=== PATIENT | female | born 2000 | race Caucasian/White ===

== ENCOUNTER 2020-04-14 09:42 | Emergency (ER) | payer BC, OTHER ==
--- NOTE | 2020-04-14 09:46 | PDOC ---
History of Present Illness - General Chief Complaint: Pain Stated Complaint: CHEST, ABD PAIN Time Seen by Provider: 04/14/20 09:44 - History of Present Illness Initial Comments: The pt is a 19F w/ no reported PMH who presents for evaluation of abdominal and chest pain for 1 day. The pt reports that this AM she woke with Pelvic/S uprapubic cramping that was constant, radiated up to her upper abdomen and chest, lasted for approximately 15 minutes and then started to improve. She currently denies chest pain. She has never had symptoms like this before. She reports current lower abdominal tenderness but nowhere near the severity earlier. She denies fevers/chills, BERNABE, vision changes, trouble breathing, N/V/C/D, dysuria, hematuria, vaginal bleeding/discharge. LMP was 3 weeks ago and pt states her menses are regular. Pt reports being sexually active in the past, last encounter was 06/2019 but denies any symptoms. PMH: Ache PSH: Denies Meds: Spironolactone Allergies: Denies SH: Denies x3 04/14/20 10:38 Past History - Medical History Allergies/Adverse Reactions: Allergies Allergy/AdvReac Type Severity Reaction Status Date / Time No Known Allergies Allergy Verified 04/14/20 09:42 Home Medications: Ambulatory Orders Spironolactone mg PO DAILY 04/14/20 - Immunization History Immunization Up to Date: Yes - Psycho-Social/Smoking History Smoking Status: No Smoking History: Never smoked Have you smoked in the past 12 months: No Number of Cigarettes Smoked Daily: 0 Review of Systems - Review of Systems Able to Perform ROS?: Yes Comments:: GENERAL/CONSTITUTIONAL: No fever or chills. No weakness HEAD, EYES, EARS, NOSE AND THROAT: No change in vision. No change in hearing. No sore throat CARDIOVASCULAR: No shortness of breath RESPIRATORY: Denies cough, hemoptysis GASTROINTESTINAL: No nausea, vomiting, diarrhea or constipation GENITOURINARY: No dysuria, frequency, or change in urination MUSCULOSKELETAL: No joint or muscle swelling or pain. No neck or back pain SKIN: No rash NEUROLOGIC: No headache, vertigo, loss of consciousness, or change in strength/sensation ENDOCRINE: No increased thirst. No abnormal weight change HEMATOLOGIC/LYMPHATIC: No anemia, easy bleeding, or history of blood clots ALLERGIC/IMMUNOLOGIC: No hives or skin allergy 04/14/20 09:46 Is the patient limited Luxembourger proficient: No *Physical Exam - Vital Signs Initial Vital Signs Temp Pulse Resp BP Pulse Ox 99 F 73 18 125/75 100 04/14/20 09:42 04/14/20 09:42 04/14/20 09:42 04/14/20 09:42 04/14/20 09:42 04/14/20 10:18 - Physical Exam GENERAL: Awake, alert, and oriented to person/place/time, in no acute distress HEAD: No signs of trauma, normocephalic, atraumatic EYES: PERRLA, EOMI, sclera anicteric, conjunctiva clear ENT: Hearing grossly normal, nares patent, oropharynx clear without exudates. Moist mucosa LUNGS: No distress, speaks in full sentences, clear to auscultation bilaterally HEART: Regular rate and rhythm, normal S1 and S2, no murmurs appreciated, peripheral pulses normal and equal bilaterally ABDOMEN: Soft, LLQ/suprapubic TTP w/o rebound or guarding, normoactive bowel sounds EXTREMITIES: Normal inspection, Normal range of motion, no edema. No clubbing or cyanosis NEUROLOGICAL: Cranial nerves II through XII grossly intact. Normal speech, normal gait, no focal sensorimotor deficits SKIN: Warm, Dry External genitalia unremarkable. Speculum exam with moderate amount of whitish-green discharge Vaginal wall mucosa is unremarkable Cervix visualized and is closed in appearance without any protruding material Bimanual exam without cervical motion tenderness, general pressure sensation reported but no focal adnexal tenderness or any masses appreciated Swabs for testing for gonorrhea, chlamydia were obtained 04/14/20 09:46 ED Treatment Course - LABORATORY CBC & Chemistry Diagram: 04/14/20 10:15 04/14/20 10:15 - RADIOLOGY Radiograph Interpretation: US/PELVIS(OTHER) US The uterus is normal in size measuring 9.4 x 4.6 x 2.7 cm. No uterine masses are seen. A normal appearing endometrium of 10 mm thickness is identified. The ovaries are normal in size and texture with arterial and venous flow documented to both ovaries. There is an involuting cyst of the right ovary with a trace of free fluid within the cul-de-sac. There is no evidence of adnexal masses. IMPRESSION: Involuting cyst of the right ovary with trace free fluid, otherwise normal pelvic sonogram with no evidence of ovarian torsion or acute pathology. 04/14/20 12:07 Medical Decision Making - Medical Decision Making The pt is a 19F w/ no reported PMH who presents for evaluation of abdominal and chest pain for 1 day that is improving. Pt currently with LLQ and suprapubic TTP w/o rebound or guarding. Pelvic exam with moderate discharge w/o CMT Pt does not want anything for pain at this time Ddx: Uterine cramping, , ovarian cyst, STI, UTI/pyelo, not likely appendicitis, not likely ACS, not likely enteritis/gastroenteritis ED Course CMP, CBC, UA, Upreg, GC amplification ECG TVUS ECG w/ NSR, sinus arrhythmia noted; HR 66; QTc 419; no axis deviation; no acute ischemic changes No leukocytosis No anemia UA contaminated but w/o evidence of UTI Upreg neg 04/14/20 10:45 Lytes unremarkable No ULISES LFTs unremarkable 04/14/20 10:49 TVUS w/ involuting cyst of the right ovary with trace free fluid, otherwise normal pelvic sonogram with no evidence of ovarian torsion or acute pathology Pt's pain controlled at this time Plan for D/C w/ PCP/OBGYN f/u Discharge instructions and return precautions given Patient in agreement and verbalized understanding Dispo: Home 04/14/20 12:08 Discharge - Discharge Information Problems reviewed: Yes Clinical Impression/Diagnosis: Suprapubic pain Chest pain Qualifiers: Chest pain type: unspecified Qualified Code(s): R07.9 - Chest pain, unspecified Ovarian cyst Qualifiers: Laterality: right Qualified Code(s): N83.201 - Unspecified ovarian cyst, right side Condition: Stable Disposition: HOME - Admission No - Follow up/Referral Referrals: Cristofer Bekcwith MD [Staff Physician] - Jewels Nichols MD [Staff Physician] - [facility] – [place] [facility] at [place] [Provider Group] - Patient Discharge Instructions Patient Printed Discharge Instructions: DI for Ovarian Cyst Additional Instructions: You were seen in the Emergency Department for evaluation of abdominal and chest pain. Your labs were overall unremarkable and your ECG was normal. Your ultrasound was notable for a right, resolving ovarian cyst. It is likely that this is the source of your pain. Review the handout provided at discharge. A referral for OBGYN was provided, please follow up with them or your own within a week. For pain you may take Tylenol 650mg every 6 hours and Ibuprofen 600mg every 6-8 hours, alternating them each time. Return to the Emergency Department if you develop fevers, chest pain, trouble breathing, vaginal bleeding/discharge, pain with urination, blood in your urine, blood in your stool, worsening pain, change in sensation, worsening symptoms, or any new/concerning symptoms. - Post Discharge Activity Work/Back to School Note: Back to Work
[2020-04-14 09:49] VITALS: BP 125/75; PULSE 73; TEMP 99; BMI 30.4
[2020-04-14 10:30] LABS: BASO % 0.5 % (0-2.0); EOS % 0.9 % (0-4.5); HEMATOCRIT 35.4 % (32.4-45.2); HEMOGLOBIN 12.2 GM/dl (10.7-15.3); LYMPH % 29.4 % (8-40); MCH 30.3 pg (25.7-33.7); MCHC 34.5 g/dl (32.0-36.0); MEAN PLT VOLUME 8.2 fl (7.5-11.1); MONO % 7.3 % (3.8-10.2); NEUT % 61.9 % (42.8-82.8); PLATELET COUNT 218 K/MM3 (134-434); RBC 4.02 M/mm3 (3.60-5.2); RDW 12.2 % (11.6-15.6); WHITE BLOOD COUNT 6.7 K/mm3 (4.0-10.8)
[2020-04-14 10:30] LABS: EPITHELIAL CELLS MANY /hpf
[2020-04-14 10:37] LABS: ALBUMIN 3.9 g/dl (3.4-5.0); BILIRUBIN,TOTAL 0.4 mg/dl (0.2-1); CALCIUM 8.9 mg/dl (8.5-10); CREATININE 0.6 mg/dl (0.55-1.3); TOT PROT 6.8 g/dl (6.4-8.2)
--- NOTE | 2020-04-14 13:38 | PDOC ---
Attending Attestation - Resident Resident Name: Santi Noe - ED Attending Attestation I have performed the following: I have examined & evaluated the patient, The case was reviewed & discussed with the resident, I agree w/resident's findings & plan, Exceptions are as noted - HPI HPI: 04/14/20 11:40 19-year-old female with no significant past medical history presents to the emergency department with abdominal pain since this morning. Patient reports pain was localized around the suprapubic area and was dull, rated at a 5/10. She reports the pain radiated up towards her chest for less than a minute. Denies chest pain. At this time, she reports she has significantly less pain but continues to have a dull 2 out of 10 discomfort in the suprapubic area. Denies history of similar symptoms. Denies any nausea, vomiting, diarrhea. Reports her last period was 3 weeks ago. Denies any vaginal discharge. Reports last sexual encounter was year and half ago, denies any recent sexual partners. Denies any hematuria, dysuria, frequency or urgency. Denies any flank pain. Was in her usual state of health yesterday. Denies any headache, focal weakness or numbness, chest pain, shortness of breath or lower extremity edema. Of note patient reports that she take spironolactone for acne. Denies any surgical history. - Physicial Exam PE: 04/14/20 13:49 GENERAL: Awake, alert, and fully oriented, in no acute distress EYES: PERRLA, EOMI, sclera anicteric, conjunctiva clear ENT: Oropharynx clear without exudates. Moist mucosa NECK: Normal ROM, supple, no lymphadenopathy, JVD, or masses LUNGS: Breath sounds equal, clear to auscultation bilaterally. No wheezes, and no crackles HEART: Regular rate and rhythm, normal S1 and S2, no murmurs, rubs or gallops ABDOMEN: Soft, minimal suprapubic ttp. Otherwise nontender, normoactive bowel sounds. No guarding, no rebound or distention. No masses EXTREMITIES: Normal range of motion, no edema. No clubbing or cyanosis. No cords, erythema, or tenderness NEUROLOGICAL: Normal speech, cranial nerves intact, equal strength and sensation b/l SKIN: Warm, Dry, normal turgor, no rashes or lesions noted. - Medical Decision Making 04/14/20 13:50 19yo F presents to the ED with dull suprapubic pain, now improved w/o intervention Vitals wnl Exam with suprapubic ttp DDx includes vs STI vs UTI vs ovarian cyst rupture vs mittelschmirtz vs appy vs diverticulitis Pelvic done by Dr. Noe and supervised by me revealing of white thick discharge in vault, no significant focal ttp or cmt Pt low risk for STI based on history so will not treat empirically for PID but GC/CT swab is pending TVUS reveals involuting R ovarian cyst and trace free fluid. Sxs likely 2/2 ruptured ovarian cyst with rupture causing temporary pain radiating towards chest EKG non ischemic UA neg, labs unremarkable with no leukocytosis Pain well controlled in the ED. No RLQ or LLQ ttp to suggest appy or diverticulitis Pain declined pain medication throughout ED stay She is well appearing. Return precautions discussed She is clinically stable for DC to f/u [facility] I discussed the physical exam findings, ancillary test results and final diagnoses with the patient. I answered all of the patient's questions. The patient was satisfied with the care received and felt comfortable with the discharge plan and treatment plan. The patient will call their primary care physician within 24 hours to arrange follow-up and will return to the Emergency Department with any new, persistent or worsening symptoms. Heart Score/ECG Review #1 04/14/20 13:53 Twelve-lead EKG was performed and reviewed by me. Normal sinus rhythm, rate 66. Sinus arrhythmia likely secondary to respiratory variation. No ST elevations or T wave inversions. Discharge - Discharge Information Problems reviewed: Yes Clinical Impression/Diagnosis: Suprapubic pain Chest pain Qualifiers: Chest pain type: unspecified Qualified Code(s): R07.9 - Chest pain, unspecified Ovarian cyst Qualifiers: Laterality: right Qualified Code(s): N83.201 - Unspecified ovarian cyst, right side Condition: Stable Disposition: HOME - Follow up/Referral Referrals: [facility] – [place] [facility] at [place] [Provider Group] Jewels Nichols MD [Staff Physician] - Cristofer Beckwith MD [Staff Physician] - - Patient Discharge Instructions Patient Printed Discharge Instructions: DI for Ovarian Cyst Additional Instructions: You were seen in the Emergency Department for evaluation of abdominal and chest pain. Your labs were overall unremarkable and your ECG was normal. Your ultrasound was notable for a right, resolving ovarian cyst. It is likely that this is the source of your pain. Review the handout provided at discharge. A referral for OBGYN was provided, please follow up with them or your own within a week. For pain you may take Tylenol 650mg every 6 hours and Ibuprofen 600mg every 6-8 hours, alternating them each time. Return to the Emergency Department if you develop fevers, chest pain, trouble breathing, vaginal bleeding/discharge, pain with urination, blood in your urine, blood in your stool, worsening pain, change in sensation, worsening symptoms, or any new/concerning symptoms. - Post Discharge Activity Work/Back to School Note: Back to Work
--- NOTE | 2020-04-15 12:57 | EKG ---
Test Reason : Blood Pressure : / mmHG Vent. Rate : 066 BPM Atrial Rate : 066 BPM P-R Int : 144 ms QRS Dur : 090 ms QT Int : 400 ms P-R-T Axes : 052 067 048 degrees QTc Int : 419 ms NORMAL SINUS RHYTHM WITH SINUS ARRHYTHMIA NORMAL ECG NO PREVIOUS ECGS AVAILABLE Confirmed by MD ELTON, JOANNE ([id number]) on 04/15/2020 12:57:10 PM Referred By: RAFAT GARDUNO Confirmed By:JOANNE CONDE MD
== END 2020-04-14 12:25 | disposition home or self-care (01) ==
LOC: FER 09:42
DX: N83.201 Unspecified ovarian cyst, right side (principal); R07.9 Chest pain, unspecified
CPT/HCPCS: 36415; 76856-TC; 80053; 81003; 81015; 84703; 85025; 87491; 87591; 93005; 99285-25